=== PATIENT | female | born 1980 | race Hispanic/Latino ===

== ENCOUNTER 2018-12-21 22:38 | Emergency (ER) | payer SELFPAY ==
[~2018-12-21] VITALS: Ht 167.6 cm; Wt 69.9 kg
[2018-12-21] MEDS ORDERED: SODIUM CHLORIDE 0.9% 1000ML 1,000 ML IV STA (22:41)
[2018-12-21] MEDS ORDERED: MORPHINE SULFATE INJ 4 MG/ML INJ 1ML IV STA (22:41)
[2018-12-21] MEDS ORDERED: ONDANSETRON HCL INJ 2MG/ML 2ML 2 MG/ML VIAL IV ONE (22:45)
[2018-12-21] MEDS ORDERED: FAMOTIDINE 20 MG/2 ML VIAL IV ONE (22:45)
[2018-12-21] MEDS ORDERED: POTASSIUM CHLORIDE 20 MEQ TAB CR PO STA (23:35)
[2018-12-22] MEDS ORDERED: IOPAMIDOL 300MG/ML 100 ML INFUS..BTL IV ONE
--- NOTE | 2018-12-22 00:21 | Diagnostic Imaging Report ---
EXAM: CT Abdomen and Pelvis WITH contrast INDICATION: Right lower quadrant pain, nausea and vomiting. COMPARISON: None. TECHNIQUE: Abdomen and pelvis were scanned utilizing a multidetector helical scanner from the lung base to the pubic symphysis after administration of IV contrast. Coronal and sagittal reformations were obtained. Routine protocol was performed. Scan was performed when during portal venous phase. IV CONTRAST: 100 cc [id number]. ORAL CONTRAST: Water RADIATION DOSE: Total DLP: 526.29 mGy*cm Estimated effective dose: (DLP x 0.015 x size factor) mSv COMPLICATIONS: None FINDINGS: LINES and TUBES: None. LOWER THORAX: Unremarkable HEPATOBILIARY: No focal hepatic lesions. No biliary ductal dilation. GALLBLADDER: No radio-opaque stones or sludge. No wall thickening. SPLEEN: No splenomegaly. PANCREAS: No focal masses or ductal dilatation. ADRENALS: No adrenal nodules KIDNEYS/URETERS: Kidneys enhance symmetrically. No hydronephrosis. No cystic or solid mass lesions. No stones. GI TRACT: No abnormal distention, wall thickening, or evidence of bowel obstruction. Appendix is normal. PELVIC ORGANS/BLADDER: Complex cystic mass in the anterior pelvis measures 9.7 x 7.3 x 10.1 cm in sagittal, AP and transverse dimensions, possibly arising from the right ovary as seen on image 58 series 2. It abuts and displaces the uterine fundus. LYMPH NODES: No lymphadenopathy. VESSELS: Unremarkable. PERITONEUM / RETROPERITONEUM: No free air or fluid. BONES: Unremarkable. SOFT TISSUES: Bilateral breast implants. IMPRESSION: 1. 10.1 cm complex cystic mass in the pelvis possibly arising from the right ovary. Recommend gynecologic surgery consultation. This could be further characterized with ultrasound of pelvis with Doppler evaluation if concern for torsion. Signed by: Dr. Ruma Brizuela M.D. on 12/22/2018 12:18 AM
--- NOTE | 2018-12-22 03:23 | Diagnostic Imaging Report ---
EXAM: Transabdominal and Transvaginal Pelvic Ultrasound with Duplex INDICATION: Pelvic mass on ultrasound. Pelvic pain. COMPARISON: None. Correlation with CT abdomen and pelvis dated 12/21/2018. TECHNIQUE: Grayscale transverse and sagittal Grayscale transverse and sagittal transabdominal and transvaginal images were obtained of the pelvis. Transvaginal imaging was medically necessary to better evaluate the endometrium and the adnexa. The ovaries were examined with grayscale, color Doppler, and spectral waveform analysis. CLINICAL HISTORY: 38 year old A1; last menstrual period: 11/01/2018.. FINDINGS: Uterus Orientation: Normal Size: 10.5 x 4.4 x 5.6 cm, normal Mass: None Cervix: Normal Endometrium: Thickness: 1.2 cm, Normal. Appearance: Homogeneous echotexture without focal thickening. Right ovary: Size: 8.7 x 7.6 x 10.4 cm Mass/Cyst: Large complex lesion with diffuse low level internal, measures 6.3 x 7.1 x 8.9 cm with a cyst within a cyst appearance and possible nodular mural component. Vascularity: Normal venous and arterial color flow and waveforms. Left ovary: Size: 3.2 x 1.7 x 2.6 cm Mass/Cyst: None Vascularity: There is no significant normal ovarian tissue identified, however, soft tissue along the cystic mass wall demonstrate blood flow. Adnexa: Normal Cul-de-sac: No free fluid IMPRESSION: 1. Approximately 8.9 cm complex cystic mass arising from the right ovary with low-level internal echoes possibly representing hemorrhage. Recommend dedicated gynecological surgical consultation, and then if warranted, nonemergent MRI of pelvis performed for further characterization. Signed by: Dr. Ruma Brizuela M.D. on 12/22/2018 3:19 AM
[2018-12-22] MEDS ORDERED: KETOROLAC TROMETHAMINE 30 MG/ML VIAL IV ONE (03:45)
[2018-12-22] MEDS ORDERED: HYDROCODONE/APAP 5MG-325MG TAB PO ONE (07:00)
== END 2018-12-22 03:50 | disposition home or self-care (01) ==
LOC: FSED 22:38
DX: R10.31 Right lower quadrant pain (principal); R11.2 Nausea with vomiting, unspecified; N83.201 Unspecified ovarian cyst, right side
CPT/HCPCS: 74177; 80048; 80076; 81003; 85025; 93976; 99284; J2270; J2405; J7030